=== PATIENT | male | born 1940 | race Caucasian/White ===

== ENCOUNTER → 2019-08-07 07:53 | Outpatient (CLI) | payer MEDICARE, SELFPAY ==
[2019-08-07 08:56] LABS: Hematocrit 44.1 % (41-53); Hemoglobin 15.2 g/dL (13.5-17.5); Mean Corpuscular HGB Conc 34.4 % (30-36); Mean Corpuscular Hemoglobin 30.6 PG (26-34); Mean Corpuscular Volume 88.7 fL (80-100); Platelet Count 226 X10^3/uL (150-400); Red Blood Cell Count 4.97 X10^6/uL (4.5-5.9); White Blood Cell Count 6.8 X10^3/uL (4.5-11.0)
[2019-08-07 08:57] LABS: BUN Creatinine Ratio 16.7 (6-22); Blood Urea Nitrogen 15 mg/dL (9-20); Calcium 9.6 mg/dL (8.4-10.2); Carbon Dioxide 25 mmol/L (22-32); Chloride 105 mmol/L (98-107); Cholesterol 312 mg/dL (140-199); Estimated Glomerular Filt Rate > 60.0 mL/min (>60); Glucose 100 mg/dL (80-110); HDL Cholesterol 45 mg/dL (40-60); HEMOLYSIS < 15 (0-50); LDL Cholesterol Calculated 246 mg/dL (<100); Sodium 140 mmol/L (137-145); Triglycerides 104 mg/dL (35-150)
[2019-08-07 09:28] LABS: Prostate Specific Antigen 0.863 ng/mL (0.10-4.00)
[2019-08-07 09:34] LABS: TSH w/ Reflex to FT4 2.08 uIU/mL (0.47-4.68)
[2019-08-07 14:25] LABS: Vitamin D 25 Hydroxy (D3) 17.9 ng/mL (30.0-100.0)
== END ==
PROVIDERS: PCP Student in an Organized Health Care Education/Training Program; Visit Provider Student in an Organized Health Care Education/Training Program
DX: C61 Malignant neoplasm of prostate (principal); Z90.79 Acquired absence of other genital organ(s); E55.9 Vitamin D deficiency, unspecified; F01.50 Vascular dementia, unspecified severity, without behavioral disturbance, psychotic disturbance, mood disturbance, and anxiety; F32.9 Major depressive disorder, single episode, unspecified; R53.83 Other fatigue; E78.2 Mixed hyperlipidemia; R41.82 Altered mental status, unspecified
CPT/HCPCS: 36415; 80048; 80061; 82306; 84153; 84443; 85027

== ENCOUNTER → 2019-08-10 13:51 | Outpatient (CLI) | payer MEDICARE, SELFPAY ==
--- NOTE | 2019-08-10 14:00 | DI.CT.S_ITS ---
PROCEDURE: CT ANGIO HEAD INDICATIONS: Altered mental status TECHNIQUE: Precontrast 4.5 mm thick angled axial sections acquired from the foramen magnum to the vertex. After the administration of intravenous contrast, 1 mm thick sections acquired through the [place] of [place]. Postcontrast 4.5 mm thick sections then re-acquired from the foramen magnum to the vertex. 10 mm thick pzftmom-heyfaxhej-hweizufttp (MIP) reformats were acquired of the central intracranial vasculature. For radiation dose reduction, the following was used: automated exposure control, adjustment of mA and/or kV according to patient size. COMPARISON: None. FINDINGS: Image quality: Excellent. Anterior circulation: Intracranial internal carotid arteries are normal in size and flow. The flow within the paired anterior cerebral arteries is normal and symmetric. The flow within the middle cerebral arteries is normal and symmetric. The anterior communicating artery is seen. No aneurysms are seen. Posterior circulation: Visualized portions of the vertebral arteries demonstrate normal caliber, and join to form a normal appearing basilar artery. Flow within the posterior cerebral arteries is normal and symmetric. No aneurysms are seen. CSF spaces: Ventricles are normal in size and shape. Basal cisterns are patent. No extra-axial fluid collections. Brain: No midline shift. No intracranial bleeds or masses. No acute stroke. [place]-white matter interface appears intact. Age related volume loss and mild spinal vessels ischemic change. Skull and face: Calvarium and facial bones appear intact, without suspicious lesions. Sinuses: Visualized sinuses and mastoids are clear. IMPRESSION: 1. Age related volume loss and mild small vessel ischemic change. 2. No evidence acute stroke, hemorrhage, or mass. 3. Unremarkable CTA head with no evidence of aneurysm, occlusion, filling defect, or significant stenosis. Dictated by: Charles Vieyra M.D. on 08/10/2019 at 17:15 Approved by: Charles Vieyra M.D. on 08/10/2019 at 17:18
== END ==
PROVIDERS: PCP Student in an Organized Health Care Education/Training Program; Visit Provider Student in an Organized Health Care Education/Training Program
DX: R41.82 Altered mental status, unspecified (principal)
CPT/HCPCS: 70496; Q9967

== ENCOUNTER → 2020-10-13 12:18 | Outpatient (CLI) | payer MEDICARE, SELFPAY ==
[2020-10-13 12:59] LABS: COVID19 -Nasal RAPID Negative (Negative)
== END ==
PROVIDERS: PCP Student in an Organized Health Care Education/Training Program; Visit Provider Physician Assistant
DX: J02.9 Acute pharyngitis, unspecified (principal); Z20.822 Contact with and (suspected) exposure to COVID-19
CPT/HCPCS: 87070; 87635

== ENCOUNTER 2022-06-05 20:33 | Observation (INO) | payer MEDICARE, SELFPAY ==
[2022-06-05] VITALS (12 sets, daily range): BP systolic 109–133; BP diastolic 58–69; PULSE 72–88; RESP 17–20; TEMP 37.3–38.2; O2SAT 93–95; BMI 25.0
--- NOTE | 2022-06-05 20:38 | DI.RAD.S_ITS ---
PROCEDURE: XR CHEST 1V INDICATIONS: sepsis TECHNIQUE: One view of the chest was acquired. COMPARISON: [facility], , CHEST 2 VIEW, 06/27/2015, 9:20. FINDINGS: Surgical changes and devices: No evidence of acute appendicitis. Lungs and pleura: There is asymmetric increased enlargement of the right hilar contours. Elsewhere, no acute consolidation. No pleural effusions or pneumothorax. Mediastinum: Mediastinal contours appear normal. Heart size is normal. Bones and chest wall: No suspicious bony lesions. Overlying soft tissues appear unremarkable. IMPRESSION: 1. Increased asymmetric enlargement of the right hilar contours. The differential includes perihilar consolidation, lymphadenopathy, or mass. Dictated by: Ernie Rodriguez M.D. on 06/05/2022 at 22:38 Approved by: Ernie Rodriguez M.D. on 06/05/2022 at 22:47
--- NOTE | 2022-06-05 20:39 | ED.SEPSIS ---
HPI - Sepsis General Chief Complaint: Weakness Evaluation Narrative: 82-year-old male nonsmoker with history of vascular dementia presents by EMS for evaluation of fever as high as 101.8, shaking chills and generalized weakness for the past few days. He has very little in terms a specific other symptoms or suggestion of source and denies any headache or blurred vision. He is had no runny nose, sore throat or cough. He is had no chest pain or shortness of breath and denies abdominal pain, diarrhea or constipation. He is had no dysuria, frequency or urgency. Patient had IV placed with nearly a liter of saline en route, initially heart rate was in the 110s but is improved to the 80s and 90s on arrival. Per family he has had little to drink or eat for the past 2 days and is so weak he hasn't been able to get out of his chair for nearly 2 days Review of Systems Review of Systems Narrative: GENERAL: See HPI HEENT: Denies sinus pain, ear pain, sore throat, difficulty swallowing, dizziness. RESPIRATORY: Denies dyspnea, cough, wheezing, hemoptysis, sputum. CARDIOVASCULAR: Denies chest pain, palpitations, orthopnea, edema, GASTROINTESTINAL: Denies nausea, vomiting, abdominal pain, diarrhea, constipation, melena. : Denies dysuria, frequency, incontinence, hematuria, urinary retention. MUSCULOSKELETAL: denies weakness, joint pain, or bony pain SKIN: Denies rash, skin lesions, or other NEUROLOGIC: Denies weakness, headache, numbness, change in speech, confusion, seizures, incoordination. PSYCHIATRIC: No concerning psychosocial issues. 12 point review of systems is negative except for those stated above Patient History Medical History Anxiety (~2018) Chicken pox Colon polyps (~2008) Depression (~1999) Measles Melanoma (~2008) Melanoma in situ of back Mumps Surgical History Anesthesia S/P TURP (status post transurethral resection of prostate) Family History Father Diabetes mellitus Mother No problems noted. Social History Smoking Status: Former smoker Smoking Status: Former smoker Exam Narrative Exam Narrative: GENERAL: [82] year old patient appears stated age. Well-developed patient, in mild distress. HEAD: Atraumatic. Normocephalic. EYES: Pupils equal round and reactive. Extraocular motions intact. No scleral icterus. No injection or drainage. ENT: Dry mucous membranes Nose without bleeding, purulent drainage. Throat without erythema, tonsillar hypertrophy or exudate. Airway patent. NECK: Trachea midline. Non tender CARDIOVASCULAR: Regular rate and rhythm without murmurs, gallops, or rubs. RESPIRATORY: Clear to auscultation. Breath sounds equal bilaterally. No wheezes, rales, or rhonchi. GASTROINTESTINAL: Abdomen soft, non-tender, nondistended. EXTREMITIES: No edema or joint tenderness. BACK: Nontender without deformity or crepitance. No flank tenderness. NEURO: AOx3. SKIN: No rash or erythema of visible areas Initial Vital Signs Initial Vital Signs: Vital Signs Pulse Rate 87 06/05/22 20:38 Blood Pressure 120/58 L 06/05/22 20:38 Pulse Oximetry 93 06/05/22 20:38 Course Orders Ordered: ED Orders 06/05/22 20:38 XR chest 1V Stat 06/05/22 20:39 COVID19 -Nasal RAPID/Pre-Proc Stat Complete Blood Count AUTO DIFF Stat Comprehensive Metabolic Panel Stat Lactate (Lactic Acid) Stat Procalcitonin Stat Troponin & CK Cardiac Panel Stat 06/05/22 20:45 Blood Culture Stat 06/05/22 20:46 EKG-12 Lead Stat 06/05/22 22:12 Urinalysis and Microscopic Stat Urine Culture Stat Sodium Chloride (Normal Saline 0.9%) 2,517.45 mls @ 839.15 mls/hr 30 ml/kg infuse over 3 hr (2517.45 ml) IV NOW ONE Stop: 06/06/22 02:45 Last Admin: 06/05/22 23:52 Dose: 839.15 mls/hr Documented By: SB Discontinued Medications Clonazepam (Clonazepam 0.5 Mg Tablet) 0.5 mg PO NOW ONE Stop: 06/06/22 00:32 Last Admin: 06/06/22 00:36 Dose: 0.5 mg Documented By: MARII Ceftriaxone Sodium 2,000 mg/ (Sodium Chloride) 100 mls @ 200 mls/hr IV NOW ONE Stop: 06/05/22 20:39 Last Infusion: 06/05/22 21:35 Dose: 0 mls/hr Documented By: Admin: 06/05/22 20:58 Dose: 200 mls/hr Documented By: DAPHNE Sodium Chloride (Normal Saline 0.9%) 1,000 mls @ 1,000 mls/hr IV BOLUS ONE Stop: 06/05/22 21:54 Last Infusion: 06/05/22 23:38 Dose: 0 mls/hr Documented By: Admin: 06/05/22 20:59 Dose: 1,000 mls/hr Documented By: DAPHNE Vital Signs Vital signs: Vital Signs - 8 hr 06/05/22 20:51 06/05/22 20:38 06/05/22 20:38 Temperature 99.2 F Pulse Rate 88 87 Respiratory Rate 20 Blood Pressure 125/65 120/58 L Pulse Oximetry 94 93 Oxygen Delivery Method Room Air 06/05/22 20:39 06/05/22 20:39 06/05/22 20:42 Temperature Pulse Rate 87 86 Respiratory Rate Blood Pressure 120/58 L Pulse Oximetry 94 93 Oxygen Delivery Method 06/05/22 20:44 06/05/22 21:19 06/05/22 21:19 Temperature 100.7 F H Pulse Rate 85 Respiratory Rate Blood Pressure 125/65 133/69 Pulse Oximetry 95 Oxygen Delivery Method 06/05/22 21:30 06/05/22 21:30 06/05/22 22:00 Temperature Pulse Rate 83 Respiratory Rate 17 Blood Pressure 119/64 115/59 L Pulse Oximetry 93 Oxygen Delivery Method 06/05/22 22:00 06/05/22 22:30 06/05/22 22:30 Temperature 100.0 F H Pulse Rate 76 75 Respiratory Rate 19 Blood Pressure 109/58 L Pulse Oximetry 93 94 Oxygen Delivery Method 06/05/22 22:50 06/05/22 23:00 06/05/22 23:00 Temperature 100.3 F H Pulse Rate 73 Respiratory Rate 17 Blood Pressure 111/60 Pulse Oximetry 94 Oxygen Delivery Method 06/05/22 23:30 06/05/22 23:30 06/06/22 00:00 Temperature Pulse Rate 72 Respiratory Rate 19 Blood Pressure 117/60 112/61 Pulse Oximetry 94 Oxygen Delivery Method 06/06/22 00:00 Temperature 100.7 F H Pulse Rate 75 Respiratory Rate 17 Blood Pressure Pulse Oximetry 93 Oxygen Delivery Method Sepsis Guideline Criteria Treatment Initiated Antibiotics:: IV antimicrobials will be initiated as soon as possible after recognition of sepsis state and within one hour for both sepsis and septic shock. MDM - Sepsis Lab Data Result diagrams: 06/05/22 20:39 06/05/22 20:39 Labs: Lab Results 06/05/22 06/05/22 06/05/22 Range/Units 20:39 20:39 20:39 WBC 9.5 (4.5-11.0) X10^3/uL RBC 3.98 L (4.5-5.9) X10^6/uL Hgb 12.1 L (13.5-17.5) g/dL Hct 35.7 L (41-53) % MCV 89.7 (80-100) fL MCH 30.3 (26-34) PG MCHC 33.8 (30-36) % RDW 13.9 (11.6-14.8) % Plt Count 77 L (150-400) X10^3/uL Neut % (Auto) 89.6 H (50-75) % Lymph % (Auto) 2.8 L (25-40) % [place] % (Auto) 6.9 (3-14) % Eos % (Auto) 0.1 L (2-4) % Baso % (Auto) 0.6 (0-2) % Neut # (Auto) 8500 H (5877-3939) /uL Lymph # (Auto) 300 L (7925-4644) /uL [place] # (Auto) 700 (0-900) /uL Eos # (Auto) 0 (0-450) /uL Baso # (Auto) 100 (0-100) /uL Sodium 134 L (137-145) mmol/L Potassium 3.9 (3.4-5.1) mmol/L Chloride 105 (98-107) mmol/L Carbon Dioxide 21 L (22-32) mmol/L BUN 20 (9-20) mg/dL Creatinine 1.20 (0.66-1.25) mg/dL Estimated GFR > 60 (>60) mL/min BUN/Creatinine Ratio 16.7 (6-22) Glucose 143 H (80-110) mg/dL Lactate 1.0 (0.7-2.1) mmol/L Calcium 9.1 (8.4-10.2) mg/dL Total Bilirubin 1.5 H (0.2-1.3) mg/dL AST 47 (17-59) IU/L ALT 43 (<50) IU/L Alkaline Phosphatase 155 H (38-126) U/L Total Creatine Kinase 45 L (55-170) U/L CK-MB (CK-2) TNP CK-MB (CK-2) Rel Index TNP Troponin I < 0.012 (0.01-0.034) ng/mL Total Protein 7.7 (6.3-8.2) g/dL Albumin 3.7 (3.5-5.0) g/dL Globulin 4.0 (1.7-4.1) g/dL Albumin/Globulin Ratio 0.9 L (1.0-2.8) Procalcitonin 0.47 (<0.5) ng/mL Urine Color Urine Appearance Urine pH (4.5-8.0) Ur Specific [place] (1.000-1.035) Urine Protein (Negative) Urine Glucose (UA) (Negative) g/dL Urine Ketones (NEGATIVE) Urine Occult Blood (Negative) Urine Nitrate (Negative) Urine Bilirubin (NEGATIVE) Urine Urobilinogen (0.2) E.U./dL Ur Leukocyte Esterase (NEGATIVE) Urine RBC (0-5/HPF) Urine WBC (0-5/HPF) Urine Bacteria (None) Ur Culture Indicated? Micro UA Comment SARS-CoV-2 (PCR) (Negative) 06/05/22 06/05/22 Range/Units 20:39 22:12 WBC (4.5-11.0) X10^3/uL RBC (4.5-5.9) X10^6/uL Hgb (13.5-17.5) g/dL Hct (41-53) % MCV (80-100) fL MCH (26-34) PG MCHC (30-36) % RDW (11.6-14.8) % Plt Count (150-400) X10^3/uL Neut % (Auto) (50-75) % Lymph % (Auto) (25-40) % [place] % (Auto) (3-14) % Eos % (Auto) (2-4) % Baso % (Auto) (0-2) % Neut # (Auto) (0252-2518) /uL Lymph # (Auto) (2631-4851) /uL [place] # (Auto) (0-900) /uL Eos # (Auto) (0-450) /uL Baso # (Auto) (0-100) /uL Sodium (137-145) mmol/L Potassium (3.4-5.1) mmol/L Chloride (98-107) mmol/L Carbon Dioxide (22-32) mmol/L BUN (9-20) mg/dL Creatinine (0.66-1.25) mg/dL Estimated GFR (>60) mL/min BUN/Creatinine Ratio (6-22) Glucose (80-110) mg/dL Lactate (0.7-2.1) mmol/L Calcium (8.4-10.2) mg/dL Total Bilirubin (0.2-1.3) mg/dL AST (17-59) IU/L ALT (<50) IU/L Alkaline Phosphatase (38-126) U/L Total Creatine Kinase (55-170) U/L CK-MB (CK-2) CK-MB (CK-2) Rel Index Troponin I (0.01-0.034) ng/mL Total Protein (6.3-8.2) g/dL Albumin (3.5-5.0) g/dL Globulin (1.7-4.1) g/dL Albumin/Globulin Ratio (1.0-2.8) Procalcitonin (<0.5) ng/mL Urine Color Yellow Urine Appearance Clear Urine pH 7.0 (4.5-8.0) Ur Specific [place] 1.015 (1.000-1.035) Urine Protein 2+ H (Negative) Urine Glucose (UA) Trace H (Negative) g/dL Urine Ketones Negative (NEGATIVE) Urine Occult Blood Negative (Negative) Urine Nitrate Negative (Negative) Urine Bilirubin Negative (NEGATIVE) Urine Urobilinogen 2.0 H (0.2) E.U./dL Ur Leukocyte Esterase Negative (NEGATIVE) Urine RBC 1-5/hpf (0-5/HPF) Urine WBC 0-1/hpf (0-5/HPF) Urine Bacteria None seen (None) Ur Culture Indicated? Culture not indicate Micro UA Comment * SARS-CoV-2 (PCR) Negative (Negative) Urine Dip Bedside Urine Glucose Negative Bedside Urine Bilirubin - Negative Bedside Urine Ketone - Negative Urine Specific [place] 1.015 Bedside Urine Occult Blood - Negative Bedside Urine pH 6.5 Bedside Urine Protein + 30 Bedside Urine Urobilinogen +/- 1mg Bedside Urine Nitrite - Negative Bedside Urine Leukocytes - Negative Esterase Imaging Data Chest x-ray: Radiologist's Impression: [address] [address] XRay Report Signed Patient: Nacho Umanzor MR#: [id number] : 1940 Acct:[id number] Age/Sex: 82 / M Date of Service: 06/05/22 Loc: ED Accession Number: [id number] ?? Procedure: XR chest 1V Ordering Provider: Jed Vinson D.O. PROCEDURE:? XR CHEST 1V ? INDICATIONS:? sepsis ? TECHNIQUE:? One view of the chest was acquired.? ? COMPARISON:? [facility], , CHEST 2 VIEW, 06/27/2015, 9:20. ? FINDINGS:? ? Surgical changes and devices:? No evidence of acute appendicitis. ? Lungs and pleura:? There is asymmetric increased enlargement of the right hilar contours. ?Elsewhere, no acute consolidation.? No pleural effusions or pneumothorax.? ? Mediastinum:? Mediastinal contours appear normal.? Heart size is normal.? ? Bones and chest wall:? No suspicious bony lesions.? Overlying soft tissues appear unremarkable.? ? IMPRESSION:? ? 1. Increased asymmetric enlargement of the right hilar contours.? The differential includes perihilar consolidation, lymphadenopathy, or mass.? ? Dictated by: Ernie Rodriguez M.D. on 06/05/2022 at 22:38 ? ? Approved by: Ernie Rodriguez M.D. on 06/05/2022 at 22:47 ? Discharge Plan Departure Patient Disposition: Admitted As Inpatient Clinical Impression: Sepsis, Pneumonia Admit Date/Time: 06/06/22 00:59 Admit Provider: Rocio Mcfarland
[2022-06-05 20:52] LABS: Add Manual Diff / Slide Review NO; Basophils Absolute Auto 100 /uL (0-100); Basophils Percent Auto 0.6 % (0-2); Eosinophils Absolute Auto 0 /uL (0-450); Eosinophils Percent Auto 0.1 % (2-4); Hematocrit 35.7 % (41-53); Hemoglobin 12.1 g/dL (13.5-17.5); Lymphocytes Absolute Auto 300 /uL (1100-4500); Lymphocytes Percent Auto 2.8 % (25-40); Mean Corpuscular HGB Conc 33.8 % (30-36); Mean Corpuscular Hemoglobin 30.3 PG (26-34); Mean Corpuscular Volume 89.7 fL (80-100); Monocytes Absolute Auto 700 /uL (0-900); Monocytes Percent Auto 6.9 % (3-14); Neutrophils Absolute Auto 8500 /uL (1500-7000); Neutrophils Percent Auto 89.6 % (50-75); Platelet Count 77 X10^3/uL (150-400); Red Blood Cell Count 3.98 X10^6/uL (4.5-5.9); Red Cell Distribution Width 13.9 % (11.6-14.8); White Blood Cell Count 9.5 X10^3/uL (4.5-11.0)
[2022-06-05] MEDS: cefTRIAXone 2,000 MG in SODIUM CHLORIDE 0.9% 100 ML 200 MG IV (20:58)
[2022-06-05] MEDS: SODIUM CHLORIDE 0.9% 1,000 ML 1000 ML IV (20:59)
[2022-06-05 21:03] LABS: Alanine Aminotransferase 43 IU/L (<50); Albumin 3.7 g/dL (3.5-5.0); Albumin Globulin Ratio 0.9 (1.0-2.8); Alkaline Phosphatase 155 U/L (38-126); Aspartate Aminotransferase 47 IU/L (17-59); BUN Creatinine Ratio 16.7 (6-22); Bilirubin Total 1.5 mg/dL (0.2-1.3); Blood Urea Nitrogen 20 mg/dL (9-20); Calcium 9.1 mg/dL (8.4-10.2); Carbon Dioxide 21 mmol/L (22-32); Chloride 105 mmol/L (98-107); Creatine Kinase 45 U/L (55-170); Estimated Glomerular Filt Rate > 60 mL/min (>60); Glucose 143 mg/dL (80-110); HEMOLYSIS 18 (0-50); Potassium 3.9 mmol/L (3.4-5.1); Sodium 134 mmol/L (137-145); Total Protein 7.7 g/dL (6.3-8.2)
[2022-06-05 21:15] LABS: Troponin I < 0.012 ng/mL (0.01-0.034)
[2022-06-05 21:20] LABS: Procalcitonin 0.47 ng/mL (<0.5)
[2022-06-05 21:31] LABS: COVID19 -Nasal RAPID Negative (Negative)
[2022-06-05 22:22] LABS: Appearance Urine UA CLEAR; Bilirubin Urine UA NEGATIVE (NEGATIVE); Color Urine UA YELLOW; Glucose Urine UA TRACE g/dL (Negative); Ketones Urine UA NEGATIVE (NEGATIVE); Leukocyte Esterase Urine UA NEGATIVE (NEGATIVE); Nitrite Urine UA NEGATIVE (Negative); Occult Blood Urine UA NEGATIVE (Negative); Protein Urine UA 2+ (Negative); Specific Gravity Urine UA 1.015 (1.000-1.035)
[2022-06-05 23:21] LABS: RBC Urine 1-5/HPF (0-5/HPF); WBC Urine 0-1/HPF (0-5/HPF)
[2022-06-05 23:23] LABS: Bacteria Urine None Seen
[2022-06-05] MEDS: SODIUM CHLORIDE 0.9% 2,517.45 ML 839.15 ML IV (23:52)
[2022-06-06] VITALS (10 sets, daily range): BP systolic 94–125; BP diastolic 50–65; PULSE 66–86; RESP 16–25; TEMP 37.1–38.2; O2SAT 91–94; BMI 24.3
[2022-06-06] MEDS: clonazePAM 0.5 MG TABLET PO ×3 (00:36→12:21)
[2022-06-06 01:37] LABS: NT-proBNP (BNP-Adult 18+) 998 pg/mL (<450)
--- NOTE | 2022-06-06 02:12 | PC.NURSE ---
Unknown status of other home medications, will need to confirm with and/or son. Only clonazepam, sertraline, and buspirone confirmed.
[2022-06-06] MEDS: AZITHROMYCIN 500 MG in DEXTROSE 5% IN WATER 250 ML 250 MG IV (02:33)
[2022-06-06] MEDS: SODIUM CHLORIDE 0.9% 1,000 ML 60 ML IV ×2 (02:33→22:15)
[2022-06-06] MEDS: ACETAMINOPHEN 325 MG TABLET 650 MG PO ×2 (04:49→19:32)
--- NOTE | 2022-06-06 04:57 | PM.HP.1 ---
History of Present Illness History of Present Illness Date Patient Seen: 06/06/22 Time Patient Seen: 01:15 Chief complaint: Sepsis alert Narrative: Nacho Umanzor is a 82-year-old male nonsmoker with history of vascular dementia, major depressive disorder with anxiety who presented to the ED by EMS for evaluation of fever as high as 101.8, shaking chills and generalized weakness for the past few days.? In ED He had very little in terms a specific other symptoms or suggestion of source and denies any headache or blurred vision.? He is had no runny nose, sore throat or cough.? He is had no chest pain or shortness of breath and denies abdominal pain, diarrhea or constipation.? He is had no dysuria, frequency or urgency.? Patient had IV placed with nearly a liter of saline en route, initially heart rate was in the 110s but is improved to the 80s and 90s on arrival. Per family he has had little to drink or eat for the past 2 days and is so weak he hasn't been able to get out of his chair for nearly 2 days. Patient is a poor historian due to vascular dementia and unable to adequately participate in HPI or ROS. Upon admit exam, patient is restless lying in his bed, pleasant cooperative confused orientated to self, patient continues to deny any symptoms at this time. Upon admit patient continues to be afebrile with a temp of 100.3?, BP 109/58, HR 75, R 19, O2 saturation 94% on room air. Patient has no white count but does have a left shift neutrophils 8500. Patient's HGB 12.1, HCT 35.7, thrombocytopenia platelets 77- not noted on previous labs, mild hyponatremia sodium 134, mild hyperglycemia glucose 143, total bili 1.5, alk-phos 155, total creatinine kinase 45, troponin, procalcitonin, lactate, and COVID are all within normal limits. Patient's chest x-ray demonstrates increased asymmetric enlargement of the right hilar contours, suggestive of pneumonia. Patient admitted for fever weakness, suspected pneumonia. Patient History Medical History Anxiety (~2017) Chicken pox Colon polyps (~2008) Depression (~1999) Measles Melanoma (~2008) Melanoma in situ of back Mumps Surgical History Anesthesia S/P TURP (status post transurethral resection of prostate) Family & Social History Family History Father Diabetes mellitus Mother No problems noted. Safety & Behavioral: Feels Safe in Current Yes Environment Been Physically Hurt or No Threatened By a Person Tobacco & Substance use: Smoking Status Former smoker alcohol intake never Substance Use Type does not use Meds Home Medications and Allergies Home Medications Medication Instructions Recorded Confirmed Type cholecalciferol (vitamin D3) 125 125 mcg PO DAILY 05/31/20 01/23/22 History mcg (5,000 unit) capsule vitamin B complex (B 1 tab PO DAILY 05/31/20 01/23/22 History Complex-Vitamin B12 tablet) ascorbic acid (vitamin C) 100 mg 100 mg PO DAILY 01/23/22 01/23/22 History tablet esomeprazole magnesium 20 mg 20 mg PO DAILY 01/23/22 01/23/22 History capsule,delayed release sertraline 100 mg tablet 200 mg PO DAILY depression #180 01/23/22 06/06/22 Rx tabs buspirone 10 mg tablet 5 mg PO BID #90 tabs 04/19/22 06/06/22 Rx clonazepam 0.5 mg tablet 0.5 mg PO BID PRN anxiety #180 tabs 04/19/22 06/06/22 Rx dextroamphetamine-amphetamine 10 10 mg PO BID #180 tabs 04/19/22 04/19/22 Rx mg tablet Allergies Allergy/AdvReac Type Severity Reaction Status Date / Time No Known Drug Allergies Allergy Verified 01/23/22 09:42 Review of Systems Review of Systems Narrative: All 12 point systems reviewed with the patient and are negative except otherwise documented. Exam Vital Signs (past 8 hours): - 06/05/22 21:19 06/05/22 21:19 06/05/22 21:30 Temperature 100.7 F H Pulse Rate 85 Respiratory Rate Blood Pressure 133/69 119/64 Pulse Oximetry 95 Oxygen Flow Rate 06/05/22 21:30 06/05/22 22:00 06/05/22 22:00 Temperature 100.0 F H Pulse Rate 83 76 Respiratory Rate 17 19 Blood Pressure 115/59 L Pulse Oximetry 93 93 Oxygen Flow Rate 06/05/22 22:30 06/05/22 22:30 06/05/22 22:50 Temperature 100.3 F H Pulse Rate 75 Respiratory Rate Blood Pressure 109/58 L Pulse Oximetry 94 Oxygen Flow Rate 06/05/22 23:00 06/05/22 23:00 06/05/22 23:30 Temperature Pulse Rate 73 Respiratory Rate 17 Blood Pressure 111/60 117/60 Pulse Oximetry 94 Oxygen Flow Rate 06/05/22 23:30 06/06/22 00:00 06/06/22 00:00 Temperature 100.7 F H Pulse Rate 72 75 Respiratory Rate 19 17 Blood Pressure 112/61 Pulse Oximetry 94 93 Oxygen Flow Rate 06/06/22 00:30 06/06/22 00:30 06/06/22 01:00 Temperature Pulse Rate 73 Respiratory Rate 16 Blood Pressure 116/58 L 116/59 L Pulse Oximetry 93 Oxygen Flow Rate 06/06/22 01:00 06/06/22 01:40 06/06/22 04:00 Temperature 100.1 F H 100.5 F H Pulse Rate 73 86 81 Respiratory Rate 22 18 19 Blood Pressure 125/65 118/62 Pulse Oximetry 93 94 92 Oxygen Flow Rate 0 Oxygen Delivery Method Room Air Oxygen Flow Rate 0 Narrative Exam Narrative: GENERAL: [82] year old patient appears stated age. Well-developed patient, in no distress at this time. HEAD: Atraumatic. Normocephalic. EYES: Pupils equal round and reactive. Extraocular motions intact. No scleral icterus. No injection or drainage. ENT:? Dry mucous membranes Nose without bleeding, purulent drainage. Throat without erythema, tonsillar hypertrophy or exudate. Airway patent. NECK: Trachea midline. Non tender CARDIOVASCULAR: Regular rate and rhythm without murmurs, gallops, or rubs. RESPIRATORY: Clear to auscultation. Breath sounds equal bilaterally. No wheezes, rales, or rhonchi.? GASTROINTESTINAL: Abdomen soft, non-tender, nondistended. EXTREMITIES: No edema or joint tenderness. BACK: Nontender without deformity or crepitance. No flank tenderness. NEURO: AOx1, confused secondary to dementia. SKIN: Warm to touch, No rash or erythema of visible areas Objective Labs Result Diagrams: 06/06/22 04:48 06/06/22 04:48 Labs: Laboratory Results - last 24 hr 06/05/22 06/05/22 06/05/22 20:39 20:39 20:39 WBC 9.5 RBC 3.98 L Hgb 12.1 L Hct 35.7 L MCV 89.7 MCH 30.3 MCHC 33.8 RDW 13.9 Plt Count 77 L Neut % (Auto) 89.6 H Lymph % (Auto) 2.8 L Hall % (Auto) 6.9 Eos % (Auto) 0.1 L Baso % (Auto) 0.6 Neut # (Auto) 8500 H Lymph # (Auto) 300 L Hall # (Auto) 700 Eos # (Auto) 0 Baso # (Auto) 100 Sodium 134 L Potassium 3.9 Chloride 105 Carbon Dioxide 21 L BUN 20 Creatinine 1.20 Estimated GFR > 60 BUN/Creatinine Ratio 16.7 Glucose 143 H Lactate 1.0 Calcium 9.1 Total Bilirubin 1.5 H AST 47 ALT 43 Alkaline Phosphatase 155 H Total Creatine Kinase 45 L CK-MB (CK-2) TNP CK-MB (CK-2) Rel Index TNP Troponin I < 0.012 NT-Pro-B Natriuret Pep Total Protein 7.7 Albumin 3.7 Globulin 4.0 Albumin/Globulin Ratio 0.9 L Procalcitonin 0.47 Urine Color Urine Appearance Urine pH Ur Specific [place] Urine Protein Urine Glucose (UA) Urine Ketones Urine Occult Blood Urine Nitrate Urine Bilirubin Urine Urobilinogen Ur Leukocyte Esterase Urine RBC Urine WBC Urine Bacteria Ur Culture Indicated? Micro UA Comment SARS-CoV-2 (PCR) 06/05/22 06/05/22 06/05/22 20:39 20:39 22:12 WBC RBC Hgb Hct MCV MCH MCHC RDW Plt Count Neut % (Auto) Lymph % (Auto) Hall % (Auto) Eos % (Auto) Baso % (Auto) Neut # (Auto) Lymph # (Auto) Hall # (Auto) Eos # (Auto) Baso # (Auto) Sodium Potassium Chloride Carbon Dioxide BUN Creatinine Estimated GFR BUN/Creatinine Ratio Glucose Lactate Calcium Total Bilirubin AST ALT Alkaline Phosphatase Total Creatine Kinase CK-MB (CK-2) CK-MB (CK-2) Rel Index Troponin I NT-Pro-B Natriuret Pep 998 H Total Protein Albumin Globulin Albumin/Globulin Ratio Procalcitonin Urine Color Yellow Urine Appearance Clear Urine pH 7.0 Ur Specific [place] 1.015 Urine Protein 2+ H Urine Glucose (UA) Trace H Urine Ketones Negative Urine Occult Blood Negative Urine Nitrate Negative Urine Bilirubin Negative Urine Urobilinogen 2.0 H Ur Leukocyte Esterase Negative Urine RBC 1-5/hpf Urine WBC 0-1/hpf Urine Bacteria None seen Ur Culture Indicated? Culture not indicate Micro UA Comment * SARS-CoV-2 (PCR) Negative Assessment & Plan Assessment & Plan narrative: Nacho Umanzor is a 82-year-old male nonsmoker with history of vascular dementia, major depressive disorder with anxiety who presented to the ED by EMS for evaluation of fever as high as 101.8, shaking chills and generalized weakness for the past few days, admitted for Fever and weakness- suspect CAP pnuemonia. 1. Fever with weakness, suspect community-acquired pneumonia, acute, present on admission -with associated mild hyponatremia sodium 134, thrombocytopenia platelets 77 -etiology of fever weakness and chills is unknown at this time possible pneumonia but lung sounds are clear. Fever persists. -trend labs -sepsis rehydration completed in ED -Rocephin and azithromycin -empiric antibiotic treatment- cultures pending -blood cultures pending -sputum culture ordered -influenza A&B ordered - DuoNebs, incentive spirometry, respiratory consult -gentle hydration NS at 60 cc/HR -BNP, LDH, cbc, CMP, Mag 2. Hematuria, acute, present on admit -RN reported that once on the floor the patient had bright red bloody urine output x2 -Bladder scan PRN, straight cath for >500cc retention, if occurs x2 place sultana, -complete urine culture. -Pt had no suprapubic or CVA tenderness on exam. 3. Major depressive disorder with anxiety, chronic, in remission present on admission -Managed by Dr. Phipps -continue sertraline BuSpar clonazepam, adderall 4. Vascular dementia, chronic, present on admission -managed by Dr. Phipps -no medications at this time -Fall precautions Code status:Limited Code -Intubation Only, No cardiac resuscitation per polst Surrogate decision maker: Tiki Umanzor Spouse COVID PCR:Negative DVT/VTE prophylaxis:Lovenox & scd;s Disposition: Patient admitted to acute care for management pneumonia, expected length of stay greater than 2 midnights I have utilized all available immediate resources to obtain, update, or review the patient's current medications. I confirmed that the patient's advanced care plan is present, Code status is documented and/or surrogate decision maker is listed in the patient's medical record. Time Spent With Patient Critical Care time: I spent a total of [] minutes of critical care time on this patient's care today; this time is exclusive of procedural time. Scores GCS Hardy coma scale eye opening: Spontaneous [place] coma scale verbal response: Confused Hardy coma scale motor response: Localising Hardy coma scale total score: 13 Quality VTE Deep Vein Thrombosis/Pulmonary Embolism Present on Admission: No
[2022-06-06 05:07] LABS: Add Manual Diff / Slide Review NO; Basophils Absolute Auto 100 /uL (0-100); Basophils Percent Auto 1.2 % (0-2); Eosinophils Absolute Auto 0 /uL (0-450); Eosinophils Percent Auto 0.1 % (2-4); Hematocrit 32.4 % (41-53); Hemoglobin 11.2 g/dL (13.5-17.5); Lymphocytes Absolute Auto 200 /uL (1100-4500); Lymphocytes Percent Auto 3.4 % (25-40); Mean Corpuscular HGB Conc 34.6 % (30-36); Mean Corpuscular Hemoglobin 30.7 PG (26-34); Mean Corpuscular Volume 88.5 fL (80-100); Monocytes Absolute Auto 500 /uL (0-900); Monocytes Percent Auto 6.8 % (3-14); Neutrophils Absolute Auto 6000 /uL (1500-7000); Neutrophils Percent Auto 88.5 % (50-75); Platelet Count 66 X10^3/uL (150-400); Red Blood Cell Count 3.66 X10^6/uL (4.5-5.9); White Blood Cell Count 6.8 X10^3/uL (4.5-11.0)
[2022-06-06 05:16] LABS: BUN Creatinine Ratio 15.7 (6-22); Blood Urea Nitrogen 16 mg/dL (9-20); Carbon Dioxide 20 mmol/L (22-32); Chloride 109 mmol/L (98-107); Estimated Glomerular Filt Rate > 60 mL/min (>60); Glucose 129 mg/dL (80-110); HEMOLYSIS < 15 (0-50); Magnesium 1.6 mg/dL (1.6-2.3); Potassium 3.7 mmol/L (3.4-5.1); Sodium 133 mmol/L (137-145)
[2022-06-06 05:28] LABS: C-Reactive Protein Quant 14.9 mg/dL (<1.0)
[2022-06-06 05:38] LABS: Influenza A - CEPHEID Flu A NEGATIVE (NEGATIVE); Influenza B - CEPHEID Flu B NEGATIVE (NEGATIVE)
--- NOTE | 2022-06-06 06:24 | PC.NURSE ---
Admit? NOC Shift Note- Patient arrived to room via wheelchiar at 0130 from ER. Patient confused. Oriented patient to bed and bed controls, call gillette/TV remote. Patient will need frequent reorienting. Safety measures in place. Bed alarm activated. Call gillette and phone with n reach. will continue to monitor.
[2022-06-06] MEDS: BUSPIRONE 5 MG TABLET PO ×2 (08:33→20:55)
[2022-06-06] MEDS: SERTRALINE 50 MG TABLET 200 MG PO (08:33)
--- NOTE | 2022-06-06 09:18 | DI.CT.S_ITS ---
PROCEDURE: CT ANGIO CHEST PE PROTOCOL INDICATIONS: hypoxia, tachypnea, possible hilar mass TECHNIQUE: After the administration of intravenous contrast, 2 mm thick sections acquired from the pulmonary apices to the posterior costophrenic angles. 3-dimensional maximum intensity projection (MIP) coronal and sagittal reformats were then acquired through the thorax. For radiation dose reduction, the following was used: automated exposure control, adjustment of mA and/or kV according to patient size. COMPARISON: [facility], CR, XR CHEST 1V, 06/05/2022, 20:39. FINDINGS: Image quality: Excellent. Pulmonary arteries: Pulmonary arteries are normal in size, and demonstrate no intraluminal filling defects to suggest central pulmonary embolism. Lungs and pleura: Right lower lobe superior segment consolidation with air bronchograms, (5/140). There is bronchial wall thickening and distal mucus airway plugging. The central airways demonstrate trace secretions. Small right pleural effusion. No significant left pleural effusion. Small left pleural calcification. No pneumothorax. Mediastinum: Heart size is normal, without pericardial effusion. Calcified right hilar lymph node. Small partially calcified subcarinal lymph nodes. Thoracic aorta is normal in caliber and enhancement. Esophagus is normal in caliber, without hiatal hernia. Bones and chest wall: No suspicious bony lesions. Ribs and thoracic spine appear intact throughout. Possible right thyroid nodule. No axillary or supraclavicular adenopathy. Abdomen: Liver surface appears nodular. Gallbladder appears contracted with possible pericholecystic fluid and gallstones. Possible mild peripancreatic edema. Splenomegaly. Left simple renal cyst measuring 8 cm. No adrenal nodule. IMPRESSION: 1. No pulmonary embolism. 2. Right lower lobe consolidation with air bronchograms is most consistent with pneumonia. There is bronchial wall thickening and distal mucus airway plugging which could represent superimposed bronchitis. -Recommend follow-up to resolution. 3. Partially calcified subcarinal lymph nodes. Calcified right hilar lymph node. These are most likely due to prior granulomatous process. 4. Small right pleural effusion. Tiny left calcified pleural plaque. 5. Suspect cirrhosis and splenomegaly. There appears to be pericholecystic and peripancreatic edema. -Consider further evaluation with ultrasound or CT abdomen pelvis with IV contrast. Correlation with serum lipase could also be helpful. Dictated by: Frank Diaz M.D. on 06/06/2022 at 10:31 Approved by: Frank Diaz M.D. on 06/06/2022 at 10:44
[2022-06-06] MEDS: QUETIAPINE 25 MG TABLET 12.5 MG PO (10:42)
--- NOTE | 2022-06-06 10:54 | PC.NURSE ---
Patient voided in bedside commode and large blot clot passed, MD shown.
[2022-06-06] MEDS: MAGNESIUM CHLORIDE 64 MG TABLET 128 MG PO (12:09)
--- NOTE | 2022-06-06 12:17 | CM.DANOTE ---
Addendum entered by Yumiko Sal R.N. 06/06/22 15:26: Attempted to meet with patient's spouse again, she had some further questions. Hospitalist had met with her and mentioned hospice. has been teary. Attempted to speak to her, but she did not wish to talk now. Wanted to confirm with her if this is what she wants. Was also going to bring in some caregiver information with Saumya as well. If unable to meet with her today, will see if DC planning can meet with her tomorrow. Original Note: DCP: Case received, EMR reviewed and met with patient. Spouse, Tiki, was at bedside. Introduced self and role. Was able to obtain information regarding patient's baseline activity status at home prior to hospitalization. DCP assessment completed with information currently available. Patient is an 82 year old female who admitted early this morning to the care of the hospitalist team. PCP: Dr. Rogers. Payer: confirmed: Medicare/[employer]. Patient came to the hospital via ambulance secondary to having fever, weakness. Patient was diagnosed with pneumonia. Patient does have history of vascular dementia. Met with patient and spouse, Chaya, who was at bedside. Patient and spouse both reside in [facility]. Spouse, Chaya, confirmed that patient is independent at his baseline. She stated, he recently just cut down a tree. She also stated that he has been driving short distances, but probably will not be driving anymore. She asked about having some caregiving support at home. She asked if this was covered by Medicare, and lether know that private caregivers are out of pocket, but can consider home health services if patient continues to be weak upon discharge. She is interested in this. Gave the the resource book, and care management's business card. Patient does not currently have P.T. orders. P: DCP to continue to follow for needs. Plan is home, possibly with home health, and can revisit this with spouse upon discharge regarding agencies. Discharge Planning/Care Management CM Discharge Assessment Start: 06/06/22 12:14 Freq: Status: Active Protocol: Document 06/06/22 12:14 (Rec: 06/06/22 12:17 [id number]) Discharge Planning Assessment Assigned Pneumatic Jacketer Yumiko Sal RN/Glass Cleaner Advance Directives? No History Provided By Patient,Medical Record Prior Living Arrangements House Household Members spouse Type of transporation used prior to Drives own vehicle admit Comment Spouse indicated, he has only been driving short distances . Independent with ADL's Yes Is patient alert and oriented? To self Needs Assistance With Meal Prep,Managing Medications ,Home Chores / Shopping Caregiver for Another No Barriers to Discharge No Discharge Plan Home Transportation Arrangement Spouse Referrals Initiated Other Additional Comment Gave patent's spouse Senior Resource Book to review, for possible caregiver assist, and home health information Whiteboard Updated in Patient Room with Yes name and ext. # of Pneumatic Jacketer Review Status In Process Next Review Type Continued Stay Review
[2022-06-06] MEDS: LORazepam 1 MG TABLET PO (17:55)
[2022-06-06] MEDS: HALOPERIDOL 5 MG/ML VIAL IV (18:23)
--- NOTE | 2022-06-06 19:05 | P.EN_ITS ---
Event Note Date Patient Seen: 06/06/22 Time Patient Seen: 15:00 Event Note (Rapid Response, Code, or fall): ACP Note Active Diagnoses: Community-acquired pneumonia, advanced dementia These active diagnoses are of sufficient risk that focused discussion on advance care planning is indicated in order to allow the patient to thoughtfully consider personal goals of care; and, if situations arise that prevent the ability to personally give input, to ensure appropriate representation of their personal desires through documentation or informed surrogate decision makers. Persons present and participating in discussion: and myself Discussion: Patient tearful upon entering the room and when I inquired why she was feeling this way she stated ?if Nacho does not improve my worst fear is that he would linger on in a facility?. She states that he downhill very quickly wi th this pneumonia and she is worried he will not recover. She is very open to hospice but also is contemplating how long to continue treating the pneumonia to see if he rebounds. We discussed that sometimes it can take 2-3 days to show improvement with antibiotics her due to his dementia and delirium it may be very dressing for him to be in the hospital. She agreed and we decided to give it 1 night to see if he improves and if not to transition home on hospice. Time Spent: Total time spent [id number] in education and discussion directly related to Advance Care Plannin minutes Chuck Hoffman DO at 3:00 p.m. on 06/06/2022
[2022-06-06] MEDS: cefTRIAXone 1,000 MG in SODIUM CHLORIDE 0.9% 100 ML 200 MG IV (20:19)
[2022-06-06] MEDS: OLANZapine 10 MG VIAL IM (20:40)
[2022-06-06] MEDS: QUETIAPINE 25 MG TABLET PO (20:55)
[2022-06-06] MEDS: SENNOSIDES 8.6 MG TABLET 17.2 MG PO (20:55)
[2022-06-06] MEDS: HYDROMORPHONE 0.5 MG INJ IV (22:25)
[2022-06-07] MEDS: AZITHROMYCIN 500 MG in DEXTROSE 5% IN WATER 250 ML 250 MG IV (02:37)
[2022-06-07 05:37] LABS: BUN Creatinine Ratio 17.2 (6-22); Blood Urea Nitrogen 20 mg/dL (9-20); Calcium 7.8 mg/dL (8.4-10.2); Carbon Dioxide 21 mmol/L (22-32); Chloride 106 mmol/L (98-107); Estimated Glomerular Filt Rate > 60 mL/min (>60); Glucose 104 mg/dL (80-110); HEMOLYSIS < 15 (0-50); Magnesium 1.9 mg/dL (1.6-2.3); Potassium 3.6 mmol/L (3.4-5.1); Sodium 134 mmol/L (137-145)
[2022-06-07 05:46] LABS: Add Manual Diff / Slide Review NO; Basophils Absolute Auto 0 /uL (0-100); Basophils Percent Auto 0.3 % (0-2); Eosinophils Absolute Auto 0 /uL (0-450); Eosinophils Percent Auto 0.5 % (2-4); Hematocrit 30.9 % (41-53); Hemoglobin 10.5 g/dL (13.5-17.5); Lymphocytes Absolute Auto 300 /uL (1100-4500); Mean Corpuscular HGB Conc 34.1 % (30-36); Mean Corpuscular Hemoglobin 30.6 PG (26-34); Mean Corpuscular Volume 89.9 fL (80-100); Monocytes Absolute Auto 500 /uL (0-900); Monocytes Percent Auto 8.7 % (3-14); Neutrophils Absolute Auto 4900 /uL (1500-7000); Neutrophils Percent Auto 84.5 % (50-75); Platelet Count 65 X10^3/uL (150-400); Red Blood Cell Count 3.43 X10^6/uL (4.5-5.9); Red Cell Distribution Width 14.1 % (11.6-14.8); White Blood Cell Count 5.8 X10^3/uL (4.5-11.0)
[2022-06-07] MEDS: BUSPIRONE 5 MG TABLET PO ×2 (08:23→22:10)
[2022-06-07] MEDS: QUETIAPINE 25 MG TABLET PO ×2 (08:23→18:00)
[2022-06-07] MEDS: SERTRALINE 50 MG TABLET 200 MG PO (08:23)
[2022-06-07 08:45] VITALS: BP 76/49; PULSE 60; RESP 18; TEMP 35.3; O2SAT 93
[2022-06-07] MEDS: HYDROMORPHONE 0.5 MG INJ IV ×2 (11:07→17:07)
--- NOTE | 2022-06-07 11:07 | CM.DPC ---
Addendum entered by Dulce Padron R.N. 06/07/22 14:13: Spoke with Ingris [facility] Per Ingris Chelsy gone for the day but has tentatively scheduled info visit for tomorrow @ 0900 with pt . DCP to follow up with and hospice tomorrow to solidify plan. ADJ Original Note: DCP Cont: DCP spoke with pt spouse regarding hospice. Dr. Cain present when DCP arrived. Pt and pt spouse have agreed with hospice. DCP spoke to spouse regarding hospice services and what to expect. Hospice information given to her. DCP answered spouse questions to the best of her ability. Spouse has caregiver resources and is going to figure out caregiving situation. Spouse thankful for the information. DCP spoke with Chelsy @ [facility] and Chelsy states that the earliest she could schedule patient would be Saturday 06/09. Chelsy could have equipment out to the residence on Saturday. Chelsy is reserving the spot for pt. Anticipate discharge for pt on Saturday via BLS. DCP verbalized the above information to spouse and verbalized to expect a phone call from Hospice today for intake visit. DCP to continue to follow. Dulce Padron RN/FELIPE
--- NOTE | 2022-06-07 11:11 | CM.DPNOTE ---
Faxed referral to [facility] per Dulce. Ruth Yanez CM Assist.
[2022-06-07] MEDS: SODIUM CHLORIDE 0.9% 1,000 ML 60 ML IV (12:54)
--- NOTE | 2022-06-07 14:17 | DIET.CONS2 ---
Dietary Inpatient Consultation Note Admission Date: 06/06/2022 00:59 Pt admitted with weakness and sepsis electing for home with hospice. Recc pleasure feeding as desired for remainder of hospitalization and upon d/c. Diet: 06/06/22 Breakfast General (Regular) Diet Diet Modifications: Electronically Signed by: Radha Coles 06/07/22 14:17 Clinical Dietitian [address] [address]
--- NOTE | 2022-06-07 15:31 | PM.PN.1 ---
Subjective Subjective Date Patient Seen: 06/07/22 Interval history: Slight improvement in mentation today per family. Patient unable to participate in subjective exam, somnolent after pain medications. Primary goal is for discharge home as soon as possible, given chronic dementia, family interested in persuing hospice at home. Care management to assist with this. Given slight improvement in mentation, they would like to continue antibiotic therapy for now for pnuemonia. Exam Vital Signs (past 8 hours): - 06/07/22 08:45 Temperature 95.6 F L Pulse Rate 60 Respiratory Rate 18 Blood Pressure 76/49 L Pulse Oximetry 93 Oxygen Flow Rate 0 Oxygen Delivery Method Room Air Oxygen Flow Rate 0 Narrative Exam Narrative: GENERAL: [82] year old patient appears stated age. Well-developed patient, in no distress at this time. HEAD: Atraumatic. Normocephalic. CARDIOVASCULAR: Regular rate and rhythm without murmurs, gallops, or rubs. RESPIRATORY: Clear to auscultation. Breath sounds equal bilaterally. No wheezes, rales, or rhonchi.? GASTROINTESTINAL: Abdomen soft, non-tender, nondistended. EXTREMITIES: No edema or joint effusion NEURO: somnolent, difficult to arouse but more alert with family prior to pain medicaiton SKIN: Warm to touch, No rash or erythema of visible areas Objective Labs Result Diagrams: 06/07/22 04:51 06/07/22 04:51 Labs: Laboratory Results - last 24 hr 06/07/22 06/07/22 04:51 04:51 WBC 5.8 RBC 3.43 L Hgb 10.5 L Hct 30.9 L MCV 89.9 MCH 30.6 MCHC 34.1 RDW 14.1 Plt Count 65 L Neut % (Auto) 84.5 H Lymph % (Auto) 6.0 L [place] % (Auto) 8.7 Eos % (Auto) 0.5 L Baso % (Auto) 0.3 Neut # (Auto) 4900 Lymph # (Auto) 300 L [place] # (Auto) 500 Eos # (Auto) 0 Baso # (Auto) 0 Sodium 134 L Potassium 3.6 Chloride 106 Carbon Dioxide 21 L BUN 20 Creatinine 1.16 Estimated GFR > 60 BUN/Creatinine Ratio 17.2 Glucose 104 Calcium 7.8 L Magnesium 1.9 [facility] Medical History Anxiety (~2017) Chicken pox Colon polyps (~2008) Depression (~1999) Measles Melanoma (~2008) Melanoma in situ of back Mumps Surgical History Anesthesia S/P TURP (status post transurethral resection of prostate) Family History Father Diabetes mellitus Mother No problems noted. Social History household members: spouse Smoking Status: Former smoker alcohol intake: never Assessment & Plan Assessment & Plan narrative: Nacho Umanzor is a 82-year-old male nonsmoker with history of vascular dementia, major depressive disorder with anxiety who presented to the ED by EMS for evaluation of fever as high as 101.8, shaking chills and generalized weakness for the past few days, admitted for pneumonia. Family now interested in persuing hospice with primary goal to discharge home as soon as possible. No interest in rehabilitation or SNF. Would like to continue antibiotic therapy. 1. Sepsis with thrombocytopenia and acute metabolic encephalopathy, secondary to community-acquired pneumonia, acute, present on admission -continue antibiotics. No further advancement of care. Can eat for comfort. - as above family wishes for patient to discharge home as soon as possible. No interest in rehab even if there is some improvement with antibiotics. Given vascular dementia with acute illness, appropriate for hospice consultation. - encephalopathy is slightly improved today though he is not near baseline mentation or function - depending on clinical course, can consider PT/OT if there is marked improvement. 2. Hematuria, acute, present on admit -RN reported that once on the floor the patient had bright red bloody urine output x2 -Bladder scan PRN, straight cath for >500cc retention, if occurs x2 place sultana 3. Major depressive disorder with anxiety, chronic, in remission present on admission -Managed by Dr. Phipps -continue sertraline BuSpar clonazepam, adderall 4. Vascular dementia, chronic, present on admission -managed by Dr. Phipps -no medications at this time -Fall precautions Code status: dnr Surrogate decision maker: Tiki Umanzor Spouse COVID PCR:Negative Disposition: Patient admitted to acute care for management pneumonia, discharge will be home with hospice when appropriate equipment is delivered. I confirmed that the patient's advanced care plan is present, Code status is documented and/or surrogate decision maker is listed in the patient's medical record. Time Spent With Patient Critical Care time: I spent a total of [] minutes of critical care time on this patient's care today; this time is exclusive of procedural time. Quality VTE Deep Vein Thrombosis/Pulmonary Embolism Present on Admission: No
[2022-06-07] MEDS: HALOPERIDOL 5 MG/ML VIAL IV (17:41)
[2022-06-07] MEDS: OXYCODONE/ACETAMINOPHEN 5/325 TABLET 2 TAB PO (17:52)
[2022-06-07] MEDS: cefTRIAXone 1,000 MG in SODIUM CHLORIDE 0.9% 100 ML 200 MG IV (19:46)
[2022-06-07 20:30] VITALS: BP 86/56; PULSE 65; RESP 14; TEMP 36.4; O2SAT 88
[2022-06-07] MEDS: clonazePAM 0.5 MG TABLET PO (22:11)
[2022-06-07] MEDS: SENNOSIDES 8.6 MG TABLET 17.2 MG PO (22:11)
[2022-06-07] MEDS: QUETIAPINE 25 MG TABLET 50 MG PO (22:11)
[2022-06-08] MEDS: AZITHROMYCIN 500 MG in DEXTROSE 5% IN WATER 250 ML 250 MG IV (01:36)
[2022-06-08 05:38] LABS: Add Manual Diff / Slide Review NO; Basophils Absolute Auto 0 /uL (0-100); Basophils Percent Auto 0.3 % (0-2); Eosinophils Absolute Auto 200 /uL (0-450); Eosinophils Percent Auto 2.2 % (2-4); Hematocrit 37.4 % (41-53); Hemoglobin 12.7 g/dL (13.5-17.5); Lymphocytes Absolute Auto 300 /uL (1100-4500); Lymphocytes Percent Auto 4.3 % (25-40); Mean Corpuscular HGB Conc 33.9 % (30-36); Mean Corpuscular Hemoglobin 30.5 PG (26-34); Mean Corpuscular Volume 90.1 fL (80-100); Monocytes Absolute Auto 600 /uL (0-900); Neutrophils Absolute Auto 6600 /uL (1500-7000); Neutrophils Percent Auto 85.2 % (50-75); Platelet Count 88 X10^3/uL (150-400); Red Blood Cell Count 4.15 X10^6/uL (4.5-5.9); Red Cell Distribution Width 14.2 % (11.6-14.8); White Blood Cell Count 7.7 X10^3/uL (4.5-11.0)
[2022-06-08 05:40] LABS: BUN Creatinine Ratio 19.6 (6-22); Blood Urea Nitrogen 22 mg/dL (9-20); Calcium 8.4 mg/dL (8.4-10.2); Carbon Dioxide 22 mmol/L (22-32); Chloride 106 mmol/L (98-107); Estimated Glomerular Filt Rate > 60 mL/min (>60); Glucose 73 mg/dL (80-110); HEMOLYSIS < 15 (0-50); Magnesium 1.9 mg/dL (1.6-2.3); Potassium 4.2 mmol/L (3.4-5.1); Sodium 135 mmol/L (137-145)
[2022-06-08] MEDS: clonazePAM 0.5 MG TABLET PO ×2 (09:24→21:33)
[2022-06-08] MEDS: SERTRALINE 50 MG TABLET 200 MG PO (09:24)
[2022-06-08] MEDS: QUETIAPINE 25 MG TABLET 50 MG PO (09:25)
[2022-06-08] MEDS: BUSPIRONE 5 MG TABLET PO ×2 (09:25→21:33)
[2022-06-08 09:35] VITALS: BP 81/50; PULSE 80; RESP 20; TEMP 38; O2SAT 89
[2022-06-08 09:44] VITALS: BP 104/53
--- NOTE | 2022-06-08 10:59 | CM.DPC ---
DCP Hospice Planning Per MD, pt remains stable on comfort measures. SW spoke to Chelsy at [facility] and confirmed they just completed Info Visit with spouse Chaya and she is agreeable still to sign consents. DME to be delivered today 06/08/22 between [id number] and can open with pt tomorrow 06/09/22 between [id number]. LEVON called spouse Chaya and discussed above and she confirms she is a bit overwhelmed but agreeable with above but feels not safe for pt to d/c home tonight prior to [facility] opening tomorrow. Spouse agreeable with d/c in the AM at 0900 via BLS and preference is BLS. 2 stairs to enter and she will be present when pt arrives but is getting the home ready today in anticipation of d/c tomorrow and therefore is not planning to be bedside today unless needed. BLS form was completed and SW found copy of POLST from pt's admission to the ED by Dr. Vinson and made copy and scanned into chart and CC Ruth kindly scheduled 0900 BLS transport via [facility] for tomorrow. LEVON updated RN and MD and Chelsy at [facility] Plan: SW to follow for plan of d/c home via [facility] tomorrow Sat 06/09 0900 to home with [facility] to open at [id number] and to fax d/c summary/med list to Hospice at discharge. ENMANUEL Hoang
--- NOTE | 2022-06-08 11:02 | CM.DPNOTE ---
Called [facility], Leopoldo, to arrange BLS transport for Sat. 06/09 at 0900 per [place]. Leopoldo agreed they could take pt. to their residence. Ruth Yanez CM Assist.
--- NOTE | 2022-06-08 11:49 | PC.NURSE ---
Addendum entered by Samir Akbar R.N. 06/08/22 15:34: Spoke with Dr. Ant ferrer/robby butt starting zyprexa. Original Note: Pt alert, responsive, continually asking about going home. Plan for tomorrow morning via BLS at 09:00. Care management has spoken with as has this nurse regarding concerns spouse has with Pt coming home.
--- NOTE | 2022-06-08 11:58 | PM.PN.1 ---
Subjective Subjective Date Patient Seen: 06/08/22 Interval history: Much more alert today, but still confused, states he feels diffusely weak. No cough, chest pain, or shortness of breath currently. Denies abdominal pain, nausea, vomiting. Exam Vital Signs (past 8 hours): - 06/08/22 09:35 06/08/22 09:44 Temperature 100.4 F H Pulse Rate 80 Respiratory Rate 20 Blood Pressure 81/50 L 104/53 L Pulse Oximetry 89 L Oxygen Flow Rate 0 Oxygen Delivery Method Room Air Oxygen Flow Rate 0 Narrative Exam Narrative: GENERAL: elderly male. Well-developed patient, in no distress at this time. HEAD: Atraumatic. Normocephalic. CARDIOVASCULAR: Regular rate and rhythm without murmurs, gallops, or rubs. RESPIRATORY: Clear to auscultation. Breath sounds equal bilaterally. No wheezes, rales, or rhonchi.? GASTROINTESTINAL: Abdomen soft, non-tender, nondistended. EXTREMITIES: No edema or joint effusion NEURO: oriented to name and hospital, not to date or location. no focal deficits. SKIN: Warm to touch, No rash or erythema of visible areas Objective Labs Result Diagrams: 06/08/22 05:23 06/08/22 05:23 Labs: Laboratory Results - last 24 hr 06/08/22 06/08/22 05:23 05:23 WBC 7.7 RBC 4.15 L Hgb 12.7 L Hct 37.4 L MCV 90.1 MCH 30.5 MCHC 33.9 RDW 14.2 Plt Count 88 L Neut % (Auto) 85.2 H Lymph % (Auto) 4.3 L [place] % (Auto) 8.0 Eos % (Auto) 2.2 Baso % (Auto) 0.3 Neut # (Auto) 6600 Lymph # (Auto) 300 L [place] # (Auto) 600 Eos # (Auto) 200 Baso # (Auto) 0 Sodium 135 L Potassium 4.2 Chloride 106 Carbon Dioxide 22 BUN 22 H Creatinine 1.12 Estimated GFR > 60 BUN/Creatinine Ratio 19.6 Glucose 73 L Calcium 8.4 Magnesium 1.9 [facility] Medical History Anxiety (~2017) Chicken pox Colon polyps (~2008) Depression (~1999) Measles Melanoma (~2008) Melanoma in situ of back Mumps Surgical History (Reviewed 06/06/22 @ 05:04 by Rocio Mcfarland [facility]) Anesthesia S/P TURP (status post transurethral resection of prostate) Family History (Reviewed 06/06/22 @ 05:04 by Rocio Mcfarland [facility]) Father Diabetes mellitus Mother No problems noted. Social History household members: spouse Smoking Status: Former smoker alcohol intake: never Assessment & Plan Assessment & Plan narrative: Nacho Umanzor is a 82-year-old male nonsmoker with history of vascular dementia, major depressive disorder with anxiety who presented to the ED by EMS for evaluation of fever as high as 101.8, shaking chills and generalized weakness for the past few days, admitted for pneumonia. Family now interested in persuing hospice with primary goal to discharge home as soon as possible. No interest in rehabilitation or SNF. Would like to continue antibiotic therapy. 1. Sepsis with thrombocytopenia and acute metabolic encephalopathy, secondary to community-acquired pneumonia, acute, present on admission -continue antibiotics. No further advancement of care. Can eat for comfort. - as above family wishes for patient to discharge home as soon as possible. No interest in rehab even if there is some improvement with antibiotics. Given vascular dementia with acute illness, appropriate for hospice consultation. - encephalopathy is slightly improved today though he is not near baseline mentation or function - depending on clinical course, can consider PT/OT if there is marked improvement. 2. Hematuria, acute, present on admit -RN reported that once on the floor the patient had bright red bloody urine output x2 -Bladder scan PRN, straight cath for >500cc retention, if occurs x2 place sultana 3. Major depressive disorder with anxiety, chronic, in remission present on admission -Managed by Dr. Phipps -continue sertraline BuSpar clonazepam, adderall 4. Vascular dementia, chronic, present on admission -managed by Dr. Phipps -no medications at this time -Fall precautions Code status: dnr Surrogate decision maker: Tiki Umanzor Spouse COVID PCR:Negative Disposition: Patient admitted to acute care for management pneumonia, discharge will be home with hospice, planned for transport tomorrow morning. I confirmed that the patient's advanced care plan is present, Code status is documented and/or surrogate decision maker is listed in the patient's medical record. Time Spent With Patient Critical Care time: I spent a total of [] minutes of critical care time on this patient's care today; this time is exclusive of procedural time. Quality VTE Deep Vein Thrombosis/Pulmonary Embolism Present on Admission: No
[2022-06-08] MEDS: OLANZapine 2.5 MG TABLET 5 MG PO ×2 (16:08→21:33)
[2022-06-08 19:50] VITALS: BP 127/57; PULSE 74; RESP 18; TEMP 37.6; O2SAT 90
[2022-06-08] MEDS: AMOXICILLIN/CLAV 875/125 MG 1 TAB PO (21:33)
[2022-06-08] MEDS: ALBUTEROL/IPRATROPIUM 3 ML AMPUL INH (22:22)
[2022-06-08 22:25] VITALS: PULSE 72; RESP 22; O2SAT 95
[2022-06-09 05:07] VITALS: RESP 28
[2022-06-09] MEDS: MORPHINE 10 MG/0.5 ML ORAL SYRINGE PO ×2 (05:59→08:55)
--- NOTE | 2022-06-09 06:43 | PC.NURSE ---
End of shift note. Care of patient from [id number]. Patient oriented to self, able to state date of , follows commands. Slept fairly well after evening med pass. Needs assist with repositioning in bed. Medications needed to be crushed and given with pudding with sips of water from cup, NO straw, HOB 45 degrees. Patient's came in at 2100 and stayed with patient until 0600 this am. His son Toney came in at 0600 and will be staying until patient is discharged home with S transport. Plan is for patient to go home with home health hospice. Patient's and son request that patient receive his 0900 medications before he leaves the hospital. RR 28 this am at rest, see new orders, gave Morphine 10mg liquid po with good response, RR 20.
--- NOTE | 2022-06-09 07:17 | P.DS_ITS ---
History of Present Illness History of Present Illness Date Patient Seen: 06/09/22 Time Patient Seen: 07:30 Chief complaint: Sepsis alert Narrative: Per Rocio Mcfarland, [facility]: Nacho Umanzor is a 82-year-old male nonsmoker with history of vascular dementia, major depressive disorder with anxiety who presented to the ED by EMS for evaluation of fever as high as 101.8, shaking chills and generalized weakness for the past few days.? In ED He had very little in terms a specific other symptoms or suggestion of source and denies any headache or blurred vision.? He is had no runny nose, sore throat or cough.? He is had no chest pain or sh ortness of breath and denies abdominal pain, diarrhea or constipation.? He is had no dysuria, frequency or urgency.? Patient had IV placed with nearly a liter of saline en route, initially heart rate was in the 110s but is improved to the 80s and 90s on arrival. Per family he has had little to drink or eat for the past 2 days and is so weak he hasn't been able to get out of his chair for nearly 2 days. Patient is a poor historian due to vascular dementia and unable to adequately participate in HPI or ROS. Upon admit exam, patient is restless lying in his bed, pleasant cooperative confused orientated to self, patient continues to deny any symptoms at this time. Upon admit patient continues to be afebrile with a temp of 100.3?, BP 109/58, HR 75, R 19, O2 saturation 94% on room air. Patient has no white count but does have a left shift neutrophils 8500. Patient's HGB 12.1, HCT 35.7, thr ombocytopenia platelets 77- not noted on previous labs, mild hyponatremia sodium 134, mild hyperglycemia glucose 143, total bili 1.5, alk-phos 155, total creatinine kinase 45, troponin, procalcitonin, lactate, and COVID are all within normal limits. Patient's chest x-ray demonstrates increased asymmetric enlargement of the right hilar contours, suggestive of pneumonia. Patient admitted for fever weakness, suspected pneumonia. Discharge Providers Provider Date of admission: 06/06/22 00:59 Discharge Date: 06/09/22 Primary care physician: Андрей Rogers MD Consults: 06/06/22 01:07 Consult to Respiratory Therapy Evaluate & Treat Comment: Pneumonia PRN Physician Instructions: Evaluate and treat 06/06/22 01:46 Consult to Dietitian, Adult Routine Comment: Reason For Exam: decreased appetite, mild vascular dementia Discharge provider: Zhen Cain DO Summary Hospital Course Discharge Diagnosis: 1. Sepsis with thrombocytopenia and acute metabolic encephalopathy, secondary to community-acquired pneumonia, acute, present on admission 2. Hematuria, acute, present on admit 3. Major depressive disorder with anxiety, chronic, in remission present on admission 4. Vascular dementia, chronic, present on admission with behavioral disturbance Hospital Course: Nacho Umanzor is a 82-year-old male nonsmoker with history of vascular dementia, major depressive disorder with anxiety who presented to the ED by EMS for evaluation of fever as high as 101.8, shaking chills and generalized weakness for the few days prior to admission, he was admitted for pneumonia. He had microscopic hematuria as well, cause is not entirely known at this time but may be from infection or other causes, no further investigation was performed given his goals of care. After initial therapies, family was interested in persuing hospice with primary goal to discharge home as soon as possible. No interest in rehabilitation or SNF. They would like to continue antibiotic therapy. He has some improvement overall in mentation, but remains more confused than usual. For some behavioral disturbances he was initially trialed on seroquel without effectiveness, but improved on olanzapine. This was increased to 10 mg BID at the time of discharge. Hospice to open later today. Time Spent with Patient Time spent: Greater than 30 minutes Exam Vital Signs (past 8 hours): - 06/09/22 05:07 Respiratory Rate 28 H Oxygen Delivery Method Room Air Oxygen Flow Rate 0 Narrative Exam Narrative: GENERAL: elderly male sleeping. Well-developed patient, in no distress at this time. HEAD: Atraumatic. Normocephalic. Chest: equal chest rise bilaterally Pulm: no respiratory distress, no tachypnea EXTREMITIES: No edema or joint effusion Objective Labs Result Diagrams: 06/08/22 05:23 06/08/22 05:23 [facility] Medical History Anxiety (~2018) Chicken pox Colon polyps (~2008) Depression (~1999) Measles Melanoma (~2008) Melanoma in situ of back Mumps Surgical History Anesthesia S/P TURP (status post transurethral resection of prostate) Family History Father Diabetes mellitus Mother No problems noted. Social History household members: spouse Smoking Status: Former smoker alcohol intake: never Discharge Plan Discharge Plan Patient Disposition: Hospice - Home Provider Discharge Comment: Patient was admitted to the hospital with sepsis secondary to pneumonia. discharge home with hospice. you elected to continue antibiotic therapy. You were started on olanzapine which may need to be increased further as an outpatient. Discharge orders & Medications Prescriptions: New sennosides [senna] 8.6 mg Tablet 17.2 mg PO BEDTIME PRN (Reason: Constipation) 30 Days Qty: 60 0RF oxycodone-acetaminophen 5-325 mg Tablet 2 tab PO Q4HR PRN (Reason: Pain, Severe (7-10)) 7 Days Qty: 30 0RF amoxicillin-pot clavulanate 875-125 mg Tablet 1 tab PO BID 4 Days Qty: 8 0RF olanzapine 10 mg tablet 10 mg PO BID 30 Days Qty: 60 0RF Continued vitamin B complex [B Complex-Vitamin B12] Tablet 1 tab PO DAILY cholecalciferol (vitamin D3) 125 mcg (5,000 unit) capsule 125 mcg PO DAILY esomeprazole magnesium 20 mg capsule,delayed release(DR/EC) 20 mg PO DAILY ascorbic acid (vitamin C) 100 mg tablet 100 mg PO DAILY sertraline 100 mg tablet 200 mg PO DAILY Qty: 180 3RF buspirone 10 mg tablet 5 mg PO BID Qty: 90 3RF dextroamphetamine-amphetamine 10 mg tablet 10 mg PO BID Qty: 180 0RF Rx Instructions: administer doses at least 4-6 hours apart clonazepam 0.5 mg tablet 0.5 mg PO BID PRN (Reason: anxiety) Qty: 180 1RF Follow up/Referrals: Андрей Rogers MD [Primary Care Provider] - Diet/Activity/Treatments Diet: Diet as Tolerated Activity: As tolerated Discharge Data Primary Care Provider: Андрей Rogers Quality VTE Deep Vein Thrombosis/Pulmonary Embolism Present on Admission: No
[2022-06-09 08:00] VITALS: BP 98/56; PULSE 71; RESP 25; TEMP 37.3; O2SAT 90
[2022-06-09] MEDS: AMOXICILLIN/CLAV 875/125 MG 1 TAB PO (08:53)
[2022-06-09] MEDS: clonazePAM 0.5 MG TABLET PO (08:54)
[2022-06-09] MEDS: SERTRALINE 50 MG TABLET 200 MG PO (08:54)
[2022-06-09] MEDS: BUSPIRONE 5 MG TABLET PO (08:54)
[2022-06-09] MEDS: OLANZapine 2.5 MG TABLET 5 MG PO (08:54)
--- NOTE | 2022-06-09 09:56 | PC.NURSE ---
Pt. was discharged to home via BLS, pt. in stable condition. Pt's son given all the info for discharged instructions, discharged paperworks given to medic to be given to pt's at home. Green POLST form was included with discharged paperworks.
--- NOTE | 2022-06-09 10:47 | CM.DPC ---
Discharge Planning Note: Patient discharged home with son via BLS. [facility] will open case this morning between 10-11 am. No further needs. Magdalena Galvez RN/DCP
== END 2022-06-09 09:25 | disposition hospice, home (50) ==
LOC: ED 06-06 00:46 → ICU 06-06 01:13 → AC 06-12 07:46
PROVIDERS: Student in an Organized Health Care Education/Training Program; Admitting Provider Nurse Practitioner Family; Emergency Provider Emergency Medicine; PCP Student in an Organized Health Care Education/Training Program; Referring Provider Student in an Organized Health Care Education/Training Program; Visit Provider Nurse Practitioner Family
DX: A41.9 Sepsis, unspecified organism (principal); J18.9 Pneumonia, unspecified organism; G93.41 Metabolic encephalopathy; F03.90 Unspecified dementia, unspecified severity, without behavioral disturbance, psychotic disturbance, mood disturbance, and anxiety; D69.6 Thrombocytopenia, unspecified; R31.0 Gross hematuria; F32.9 Major depressive disorder, single episode, unspecified; F41.9 Anxiety disorder, unspecified; R65.20 Severe sepsis without septic shock; F01.51 Vascular dementia, unspecified severity, with behavioral disturbance; Z87.891 Personal history of nicotine dependence; Z20.822 Contact with and (suspected) exposure to COVID-19
CPT/HCPCS: 36415; 71045; 71275; 80048; 80053; 81001; 81003; 82550; 83605; 83735; 83880; 84145; 84484; 85025; 86140; 87040; 87086; 87502; 87635; 87797; 93005; 96365; 96366; 96367; 96372; 96375; 99284; C9803; G0378; J0696; J1170; J1630; J1650; Q9967; S0166